=== PATIENT | male | born 1955 | race Caucasian/White ===

== ENCOUNTER 2022-04-07 09:02 | Outpatient (CLI) | payer OTHER, SELFPAY ==
--- NOTE | 2022-04-07 | USCV_ITS ---
Carroll Duckworth Age: 67 Gender: M : 1955 Exam Date: 04/07/2022 09:28 Ordering Phys: Alva Webb MD Technologist: Simba Guy [place] [facility] [place]: ? aaa HISTORY: Diameter (cm) AP x Transverse x Length Velocity (cm/s) Waveform Prox Aorta: 2.01 x 1.39 x 68.80 Triphasic Mid Aorta: 2.42 x 2.09 x 72.70 Triphasic Distal Aorta: 1.17 x 2.36 x 81.00 Triphasic Right Iliac Prox: 1.62 x 1.82 x 124.60 Biphasic Left Iliac Prox: 1.98 x 1.57 x 98.80 Triphasic Stent Prox Landing x x Aneurysmal Sac Max x x Lt Lat Sac Dim Rt Lat Sac Dim Stent Dist Landing x x Right Iliac Stent x x Left Iliac Stent x x Right Renal Art Left Renal Art FINDINGS: The study was a suboptimal quality because of the poor ultrasonic window. Normal abdominal aortic dimensions. Normal aortic Doppler velocities Ectatic proximal common iliac arteries CONCLUSIONS 1. No evidence of the abdomen aortic aneurysm based on the above findings. 2. The proximal cardiac arteries are found to be ectatic. No evidence of any significant arterial stenosis based on the Doppler flow velocities. Technically difficult study because of poor ultrasonic window. Dr Cesario Johns MD [facility] (Electronically Signed) Final Date: 08 April 2022 21:00 S
--- NOTE | 2022-04-07 | USCV_ITS ---
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 Dr Cesario Johns MD [facility] (Electronically Signed) Final Date: 08 April 2022 21:02 S
== END 2022-04-07 09:03 | disposition home or self-care (01) ==
PROVIDERS: PCP Family Medicine; Visit Provider Family Medicine
DX: I73.9 Peripheral vascular disease, unspecified (principal); R60.9 Edema, unspecified; Z13.89 Encounter for screening for other disorder
CPT/HCPCS: 76706; 93925

== ENCOUNTER → 2022-12-07 13:08 | Outpatient (BNVA) | payer OTHER, SELFPAY | PROVIDERS: PCP Family Medicine; Visit Provider Nurse Practitioner Family | DX: B07.8 Other viral warts (principal); L82.1 Other seborrheic keratosis; L71.8 Other rosacea; L91.8 Other hypertrophic disorders of the skin; L57.8 Other skin changes due to chronic exposure to nonionizing radiation; L81.4 Other melanin hyperpigmentation; D22.5 Melanocytic nevi of trunk; L85.3 Xerosis cutis; Z71.89 Other specified counseling | CPT/HCPCS: 11200; 17110; 99214 ==

== ENCOUNTER → 2023-03-02 09:48 | Outpatient (BNVA) | payer OTHER, SELFPAY | PROVIDERS: PCP Family Medicine; Referring Provider Family Medicine; Visit Provider Surgery | DX: Z12.11 Encounter for screening for malignant neoplasm of colon (principal) | CPT/HCPCS: 99203 ==

== ENCOUNTER → 2023-03-16 11:14 | Outpatient (BNVA) | payer OTHER, SELFPAY | PROVIDERS: PCP Family Medicine; Referring Provider Family Medicine; Visit Provider Internal Medicine Cardiovascular Disease | DX: R07.9 Chest pain, unspecified (principal) | CPT/HCPCS: 93005; 99205 ==

== ENCOUNTER 2023-03-23 11:08 | Outpatient (CLI) | payer OTHER, SELFPAY ==
--- NOTE | 2023-03-23 11:18 | CT_ITS ---
WS: [id number] CT chest w con* [id number] HISTORY: LUNG NODULE FOLLOW UP TECHNIQUE: Axial imaging performed through the thorax. Coronal and sagittal reformats are submitted. All CT scans at [facility] use at least one of these dose optimization techniques: automated exposure control; mA and/or kV adjustment per patient size (includes targeted exams where dose is mat ched to clinical indication); or iterative reconstruction. CONTRAST: Omnipaque 350; 100 mL IV. DLP: 767.93 mGy.cm COMPARISON: None available. Lungs and central airway: Mild pulmonary hyperexpansion. There is a noncalcified lobulated nodule in the anterior LEFT upper lobe measuring 10 x 8 x 10 mm. There are additional benign calcified granulom derrick. No pneumonia. Pleura: Normal. No pleural effusion. Heart and pericardium: Normal size heart with no pericardial effusion. Mediastinum and shelby: No adenopathy. 10 mm bilateral hilar lymph nodes. Vessels: Mild atherosclerosis aorta. Normal sized pulmonary artery. Chest wall and lower neck: No soft tissue masses. Upper abdomen: Hepatic steatosis. Small hiatal hernia. No adrenal mass. Osseous structures: Mild straightening of the normal thoracic kyphosis. Anterior bridging osteophytes . IMPRESSION: 1. Lobulated noncalcified nodule LEFT upper lobe measures 10 x 8 x 10 mm. No prior studies for compar oral to evaluate for interval change. 2. Scattered pulmonary granulomata which are calcified. 3. Mild chronic emphysema. 4. No mediastinal or hilar adenopathy.
== END 2023-03-23 11:09 | disposition home or self-care (01) ==
PROVIDERS: PCP Family Medicine; Visit Provider Family Medicine
DX: R91.1 Solitary pulmonary nodule (principal); J43.9 Emphysema, unspecified; J98.4 Other disorders of lung
CPT/HCPCS: 71260

== ENCOUNTER 2023-03-31 08:33 | Outpatient (CLI) | payer OTHER, SELFPAY ==
--- NOTE | 2023-03-31 | ECG_ITS ---
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 Interpretive Statements NAME OF STUDY: LEXISCAN SESTAMIBI STRESS TEST INDICATION: Chest Pain; Shortness of Breath PROCEDURE: At the baseline, the blood pressure was 134/84 mm Hg with a heart rate of 77 bpm and oxygen saturation of 97%. The electrocardiogram showed sinus rhythm, normal axis with normal ST and T's. ??? The Lexiscan was infused over a period of 20 seconds. A total of 0.4 milligrams of Lexiscan was infused. The stress phase was continued for a total of 5 minutes. Heart rate at the end of the stress phase was 81 bpm, oxygen saturation of 97% with a blood pressure of 139/80 mm Hg. The EKG at the peak infusion revealed no significant ST-T wave changes. Isolated PVC's noted during lexiscan infusion. ??? Sestamibi was injected 20 seconds after the Lexiscan infusion. ??? Blood pressure at the end of the recovery phase was 135/78 mm Hg, oxygen saturation of 97% with a heart rate of 80 beats per minute. Isolated PVC's noted in recovery. ??? CONCLUSION: 1. No significant EKG changes with the LexiScan infusion. 2. No LexiScan induced chest pain or cardiac arrhythmia. 3. Normal blood pressure and heart rate response. 4. Sestamibi/sestamibi perfusion scan pending; see separate report. Electronically Signed On 04-11-2023 6:32:14 TRANSITIONS MANAGER by Ninfa Kelly M.D. [id number]
[2023-03-31 08:40] VITALS: BMI 39.1
--- NOTE | 2023-03-31 08:47 | NMCV_ITS ---
NM leyda perf SPECT r/s* [id number] Carroll Duckworth Age: 68 Gender: M : 1955 Exam Date: 03/31/2023 09:52 Ordering Phys: Cesario Johns MD ([email or web address]) Technologist: MARÍA ELENA Marquez Exam Location: [facility] [address] Indications: Chest pain, CAD STRESS TEST Please see separate stress test report in [facility] for full findings IMAGE PROTOCOL Rest/Stress 1 Lexiscan Day Radiopharmaceutical Dose (mCi) Administration Site Administered by Rest: Tc-99m 11.0 IV MARÍA ELENA Marquez Sestamibi Stress:Tc-99m 33.0 IV MARÍA ELENA Marquez Sestamibi Rest: 31-Mar-2023 60 Discovery 630 Stress: 31-Mar-2023 30 Discovery 630 0.4mg Lexiscan. Supine position only as patient was unable to lay prone. SPECT RESULTS Technical Quality: Excellent Raw Data Analysis: Normal Image Corrections: No attenuation or motion correction applied Summed Stress Score: 0 Summed Rest Score: 3 Summed Difference Score: 0 PERFUSION FINDINGS SPECT images demonstrate homogeneous tracer distribution throughout the myocardium on stress images. FUNCTIONAL RESULTS (calculated via Gated SPECT) Stress Image LV EF (%): 75 Stress EDV (mL):106 TID: 1.32 Stress ESV (mL):26 FUNCTIONAL FINDINGS: The left ventricle is normal in size. Transient Ischemia Dilatation of 1.3. The left ventricular ejection fraction is normal with a value of 75%. Normal end-diastolic and end-systolic volumes IMPRESSIONS 1. Myocardial perfusion imaging is normal. 2. Overall left ventricular systolic function is normal without regional wall motion abnormalities, LVEF=75%. 3. Increased transient ischemic dilation index of 1.32. This may represent subendocardial ischemia or multivessel disease. Clinical correlation is advised. 4. No EKG changes with Lexiscan infusion. Refer to separate report for details. Ninfa Kelly MD (Electronically Signed) Final Date: 31 March 2023 15:58 S
[2023-03-31] MEDS: regadenoson 0.4 Mg/5 ml Syringe IVP (10:35)
[2023-03-31 14:04] VITALS: BP 135/78; PULSE 81
== END 2023-03-31 08:34 | disposition home or self-care (01) ==
LOC: CDL 08:35
PROVIDERS: PCP Family Medicine; Visit Provider Internal Medicine Cardiovascular Disease
DX: R07.9 Chest pain, unspecified (principal); R06.02 Shortness of breath
CPT/HCPCS: 36415; 78452; 93017; 96374; 99205; A9500; J2785

== ENCOUNTER 2023-04-06 12:19 | Outpatient (CLI) | payer OTHER, SELFPAY ==
--- NOTE | 2023-04-06 12:45 | USCV_ITS ---
Carroll Duckworth Age: 68 Gender: M : 1955 Exam Date: 04/06/2023 13:32 Ordering Phys: Cesario Johns MD ([email or web address]) Technologist: CT Exam Location: [facility] [place] Indication: BP: 135 / 82 HR: 83 Rhythm: Sinus Technical Quality: Poor because of body habitus MEASUREMENTS (Male / Female) Normal Values 2D ECHO LVOT Diameter 2.2 cm LV Ejection Fraction MOD 2C 55.1 % LV Ejection Fraction 2C AL 54.0 % LA Diameter 5.0 cm Aorta at Sinotubular Diameter 3.8 cm M-MODE Aortic Annulus Diameter 4.0 cm LA Ao Ratio MM 1.4 MV E Point Septal Separation 1.9 cm DOPPLER AV Peak Velocity 160.0 cm/s LVOT Peak Velocity 119.0 cm/s AV Area Cont Eq vti 3.8 cm squared AV Area Cont Eq pk 2.8 cm squared MV Area PHT 3.9 cm squared Mitral E to A Ratio 0.7 MV E' Velocity 40.0 cm/s Mitral E to MV E' Ratio 7.8 Mitral E to LV E' Lateral Ratio 7.6 Mitral E to LV E' Septal Ratio 8.2 TR Peak Velocity 176.0 cm/s TR Peak Gradient 12.4 mmHg TV Peak E Velocity 63.0 cm/s Right Atrial Pressure 3.0 mmHg Pulmonary Artery Systolic Pressu 15.4 mmHg PV Peak Velocity 130.0 cm/s FINDINGS Left Ventricle Technically limited quality echocardiogram because of poor ultrasonic windows. LV systolic function is normal with EF of 50 to 55%. No regional wall motion abnormalities are seen. Grade 1 diastolic dysfunction Right Ventricle Normal in size and Right Atrium Normal in size Left Atrium Normal insight Mitral Valve Mild mitral annular calcification is seen. Mild mitral regurgitation. Aortic Valve Aortic valve is thickened. No significant stenosis or regurgitation. Tricuspid Valve Mild tricuspid regurgitation. Insufficient TR jet to calculate RVSP. Pulmonic Valve Not well-visualized Pericardium Normal Aorta Ascending aorta is dilated with diameter of 4.11cm IVC Appears to be normal CONCLUSIONS LV systolic function is normal with EF of 50-55% Grade 1 diastolic dysfunction Mild mitral regurgitation Mild tricuspid regurgitation Ascending aorta is dillated with diameter of 4.11cm No comparison studies available Ted Brown MD (Electronically Signed) Final Date: 07 April 2023 08:05 S
--- NOTE | 2023-04-06 13:30 | USCV_ITS ---
Carroll Duckworth Age: 68 Gender: M : 1955 Exam Date: 04/06/2023 12:52 Ordering Phys: Cesario Johns MD ([email or web address]) Technologist: CT Exam Location: [facility] [place] Indication: HISTORY: PROCEDURES: FINDINGS: The veins were found to be easily compressible with spontaneous blood flow. Non pulsatile flow pattern. The level of the below-knee segment of the greater saphenous vein on the left side, venous reflux was noted with the reflux time of 0.78 seconds. The venous segment was measuring 0.43 cm in diameter and at a depth of 0.67 cm from the surface. The mid segment of the small saphenous vein on the left side also was found to have a reflux time of 1.4-second. The venous segment was measuring 0.35 cm in diameter and at a depth of 1.04 cm from the surface. CONCLUSIONS 1. Significant venous reflux was noted at the mid segment of the small saphenous vein on the left side, with a reflux time of greater than 500 ms. 2. Significant venous reflux also was noted at the below-knee segment of the greater saphenous vein on the left side. However the venous segment was found to be superficial, at a depth of 0.67 cm. 3. The details of the venous diameter, reflux time and depth from the surface are as mentioned above. 4. No evidence deep vein thrombosis. Dr Cesario Johns MD [facility] (Electronically Signed) Final Date: 09 April 2023 10:33 S
== END 2023-04-06 12:20 | disposition home or self-care (01) ==
PROVIDERS: PCP Family Medicine; Visit Provider Internal Medicine Cardiovascular Disease
DX: R06.02 Shortness of breath (principal); R06.09 Other forms of dyspnea; M79.89 Other specified soft tissue disorders; I08.1 Rheumatic disorders of both mitral and tricuspid valves; I77.810 Thoracic aortic ectasia; I87.2 Venous insufficiency (chronic) (peripheral)
CPT/HCPCS: 93306; 93970

== ENCOUNTER 2023-04-19 13:12 | Outpatient (CLI) | payer OTHER, SELFPAY ==
--- NOTE | 2023-04-19 13:18 | USCV_ITS ---
Carroll Duckworth Age: 68 Gender: M : 1955 Exam Date: 04/19/2023 13:49 Ordering Phys: Alva Webb MD Technologist: AMOR Exam Location: [facility] [place] Indication: LE Edema HISTORY: Lower extremity edema. Lower extremity pain. PROCEDURES: Venous duplex imaging was performed in bilateral lower extremities. The following venous structures were evaluated: common femoral vein, profunda vein, proximal portion of the greater saphenous vein, superficial femoral vein, and the popliteal vein. In addition, the posterior tibial and peroneal trunk were evaluated. Bilaterally, the common femoral, superficial femoral, profunda femoral, popliteal, posterior tibial, greater saphenous veins, and the peroneal trunk were identified and interrogated in the standard fashion. These veins were found to be easily compressible with spontaneous blood flow. No evidence of insufficiency or thrombus noted. Serial compression, augmentation maneuvers, and spectral Doppler flow evaluation were performed. FINDINGS: Normal 2-D Doppler and augmentation and compressibility throughout the lower extremity venous structures. Additional imaging through the proximal calf veins also reveals no thrombus. Limited evaluation of the greater saphenous vein is patent with no thrombus. CONCLUSIONS No evidence of right lower extremity DVT. No evidence of left lower extremity DVT. Giovanny Reyes MD (Electronically Signed) Final Date: 19 April 2023 15:51 S
--- NOTE | 2023-04-19 13:18 | US_ITS ---
WS: [id number] TESTICULAR ULTRASOUND HISTORY: SCROTAL VARICOTIES BLEEDING COMPARISON: None available. TECHNIQUE: Real-time and color Doppler imaging or utilized to perform a testicular ultrasound. Right testicle: 4.2 cm x 2.6 cm x 2.6 cm. Normal size and echogenicity. No mass or torsion. Normal color Doppler is present throughout. Systolic and diastolic velocities are both present. No significant hydrocele. Right epididymis: Normal epididymis with no increased vascularity. Moderate size varicocele. Left testicle: 4.2 cm x 3.0 cm x 2.4 cm. Normal size and echogenicity. No mass or torsion. Tunica albuginea cyst measures 3 x 3 x 3 mm. Normal color Doppler is present throughout. Systolic and diastolic velocities are both present. No significant hydrocele. Left epididymis: Normal epididymis with no increased vascularity. Moderate size varicocele IMPRESSION: 1. No testicular mass or torsion. 2. Bilateral scrotal varicoceles.
== END 2023-04-19 13:13 | disposition home or self-care (01) ==
LOC: RAD 13:12
PROVIDERS: PCP Family Medicine; Visit Provider Family Medicine
DX: I86.1 Scrotal varices (principal); R60.0 Localized edema
CPT/HCPCS: 76870; 93970

== ENCOUNTER → 2023-04-28 09:44 | Outpatient (BNVA) | payer OTHER, SELFPAY | PROVIDERS: PCP Family Medicine; Visit Provider Nurse Practitioner Family | DX: R07.9 Chest pain, unspecified (principal) | CPT/HCPCS: 99213 ==

== ENCOUNTER → 2023-05-25 14:05 | Outpatient (BNVA) | payer OTHER, SELFPAY | PROVIDERS: PCP Family Medicine; Referring Provider Family Medicine; Visit Provider Internal Medicine Pulmonary Disease | DX: R06.02 Shortness of breath (principal); R91.1 Solitary pulmonary nodule; Z79.899 Other long term (current) drug therapy | CPT/HCPCS: 36415; 80053; 85025; 85049; 85384; 85610; 85730; 99204 ==

== ENCOUNTER 2023-06-15 09:39 | Outpatient (CLI) | payer OTHER, SELFPAY ==
--- NOTE | 2023-06-15 | PETR_ITS ---
PROCEDURE INFORMATION: Exam: PET/CT Skull Base to Mid-thigh Exam date and time: 06/15/2023 10:45 AM Age: 68 years old Clinical indication: Abnormal findings; 1. Lobulated noncalcified nodule left upper lobe measures 10 x 8 x 10 mm. No prior studies for. Comparison to evaluate for interval change. ; Additional info: Abnormal findings on diagnostic imaging of lung LABS AND CLINICAL REPORTS: Glucose: 134 mg/dl Treatment strategy for malignancy (PET staging): Initial Staging (PI) TECHNIQUE: Imaging protocol: Following at least four-hour fasting and following the injection of radiopharmaceutical, low dose CT images were obtained. Then, PET images were obtained. Attenuation corrected images were constructed using the CT scan. Fused images of PET and CT were reviewed. The standardized uptake values (SUV) reported below are maximum values within a region of interest, expressed in gm/ml. Exam includes orbital meatal line to mid-thigh. Radiopharmaceutical: 13.25 mCi F-18 FDG (Fluorodeoxyglucose), IV. Time of imaging post radiopharmaceutical administration: 1 hour COMPARISON: CT chest w con* [id number] 03/23/2023 12:16 PM FINDINGS: Brain: Visualized brain has normal physiologic uptake. Pharynx: No abnormal uptake. Larynx: No abnormal uptake. Thyroid: Hypermetabolic 1.2 cm right thyroid nodule has SUV max of 6.7. Lungs, pleura and trachea: The left upper lobe pulmonary nodule has no increased FDG uptake. Calcified granuloma in the right upper lobe. Heart: Normal physiologic uptake. Mediastinal space: No abnormal uptake. Liver: No abnormal uptake. Gallbladder and bile ducts: No abnormal uptake. Pancreas: No abnormal uptake. Spleen: No abnormal uptake. Adrenal glands: No abnormal uptake. Kidneys and ureters: Normal physiologic uptake. Stomach and bowel: No abnormal uptake. Vasculature: No abnormal uptake. Lymph nodes: Calcified mediastinal and hilar lymph nodes without FDG uptake. Bones/joints: No abnormal uptake in the visualized axial and appendicular skeleton. Soft tissues: Tiny fat containing umbilical hernia. [id number] IMPRESSION: 1. The left upper lobe pulmonary nodule has no increased FDG uptake. 2. Hypermetabolic 1.2 cm right thyroid nodule has SUV max of 6.7. Recommend dedicated thyroid ultrasound.
== END 2023-06-15 09:40 | disposition home or self-care (01) ==
LOC: RAD 09:40
PROVIDERS: Family Provider Internal Medicine Pulmonary Disease; PCP Family Medicine; Visit Provider Family Medicine
DX: R91.8 Other nonspecific abnormal finding of lung field (principal); R91.1 Solitary pulmonary nodule
CPT/HCPCS: 78815; A9552

== ENCOUNTER → 2023-06-29 14:10 | Outpatient (BNVA) | payer OTHER, SELFPAY | PROVIDERS: Family Provider Internal Medicine Pulmonary Disease; PCP Family Medicine; Visit Provider Internal Medicine Pulmonary Disease | DX: R91.1 Solitary pulmonary nodule (principal); J43.2 Centrilobular emphysema; M79.89 Other specified soft tissue disorders; E04.1 Nontoxic single thyroid nodule; Z87.891 Personal history of nicotine dependence; R09.82 Postnasal drip | CPT/HCPCS: 99214 ==

== ENCOUNTER 2023-07-09 09:11 | Outpatient (CLI) | payer OTHER, SELFPAY ==
--- NOTE | 2023-07-09 09:15 | US_ITS ---
WS: [id number] THYROID ULTRASOUND HISTORY: INCIDENTAL THYROID NODULE FOUND COMPARISON: PET/CT 06/15/2023 Right lobe: 2.2 cm x 2.1 cm x 4.7 cm (w x ap x l). Volume: 11.4 cm3. Mildly enlarged thyroid. There is a hypoechoic nodule in the mid gland measuring 8 x 9 x 10 mm. This does have a cystic component with a septation. No echogenic foci. There is an additional slightly hy poechoic nodule in the lower pole. This nodule is nearly isoechoic to the gland. This nodule measures 1.6 x 1.3 x 1.7 cm. No increased vascularity. Left lobe: 1.8 cm x 1.8 cm x 5.0 cm (w x ap x l). Volume: 8.7 cm3. Spongiform nodule in the central gland is subcentimeter. Isthmus: 0.6 cm. IMPRESSION: 1. TI-RADS 3; mildly suspicious nodule lower pole RIGHT thyroid. This nodule was positive on recent PET/CT. TI-RADS suggest following this nodule until greater than 2.5 cm. As this nodule is positive o n PET CT consider fine-needle aspiration by ultrasound guidance at this time. 2. Cystic nodule in the upper pole RIGHT thyroid for which yearly ultrasound evaluation can be perfo rmed.
== END 2023-07-09 09:12 | disposition home or self-care (01) ==
LOC: RAD 09:12
PROVIDERS: Family Provider Internal Medicine Pulmonary Disease; PCP Family Medicine; Visit Provider Family Medicine
DX: E04.1 Nontoxic single thyroid nodule (principal)
CPT/HCPCS: 76536

== ENCOUNTER 2023-07-15 10:58 | Outpatient (CLI) | payer OTHER, SELFPAY ==
[2023-07-15 11:14] VITALS: PULSE 94; RESP 18; O2SAT 98
[2023-07-15] MEDS: albuterol 2.5 mg/3 mL Neb INHALATION (11:14)
[2023-07-15 11:18] VITALS: PULSE 97
== END 2023-07-15 10:59 | disposition home or self-care (01) ==
PROVIDERS: PCP Family Medicine; Visit Provider Internal Medicine Pulmonary Disease
DX: J43.2 Centrilobular emphysema (principal); R91.1 Solitary pulmonary nodule; Z87.891 Personal history of nicotine dependence; R94.2 Abnormal results of pulmonary function studies
CPT/HCPCS: 94060; 94726; 94729; J7613

== ENCOUNTER 2023-09-24 09:02 | Outpatient (CLI) | payer OTHER, SELFPAY ==
--- NOTE | 2023-09-24 09:06 | CT_ITS ---
WS: [id number] CT NECK TECHNIQUE: Contrast-enhanced CT of the neck with coronal and sagittal reformatted images. CLINICAL INFORMATION: NONTOXIC SINGLE THYROID NODULE COMPARISON: None. DLP: 329.[address] scans at [facility] use at least one of these dose optimization techniques: automated e xposure control; mA and/or kV adjustment per patient size (includes targeted exams where dose is matc hed to clinical indication); or iterative reconstruction. FINDINGS: Small bilateral thyroid nodules. Dominant nodule lower pole RIGHT thyroid similar to the recent ultra sound. No mediastinal or hilar lymphadenopathy. Parotid glands are normal. Normal submandibular gland s. No evidence of supraglottic or glottic mass. Normal posterior nasopharynx. Normal parapharyngeal f at. Normal subglottic airway. Lung apices are well aerated. Paranasal sinuses and mastoid air cells well aerated. Straightening of the normal cervical lordosis. Moderate spondylitic changes. IMPRESSION: 1. Small bilateral thyroid nodules largest lower pole RIGHT thyroid similar to the prior recent ultr asound. 2. No cervical lymphadenopathy. 3. Normal salivary glands. 4. No evidence of supraglottic or glottic mass. Normal subglottic airway. 5. No other suspicious findings.
[2023-09-24] MEDS: iohexol 350 mg/mL 500 mL Btl (per mL) IV (09:27)
[2023-09-24 10:10] LABS: Blood Urea Nitrogen 13 mg/dL (8-23); Glomerular Filtration Rate 60.2 mL/min (90-130)
== END 2023-09-24 09:03 | disposition home or self-care (01) ==
LOC: RAD 09:02
PROVIDERS: PCP Family Medicine; Visit Provider Specialist
DX: E04.2 Nontoxic multinodular goiter (principal)
CPT/HCPCS: 70491; 82565; 84520; Q9967

== ENCOUNTER 2023-10-19 08:52 | Day surgery (SDC) | payer OTHER, SELFPAY ==
--- NOTE | 2023-10-19 09:05 | W.PM.OPSFHP ---
Same Day Surgery H&P Indication for Procedure/HPI DATE OF PROCEDURE: October 19, 2023 CHIEF COMPLAINT/INDICATIONFOR SURGICAL PROCEDURE: need for screening colonoscopy PREOP DIAGNOSIS: need for screening colonoscopy PLANNED PROCEDURE: Operation Date: 10/19/23 11:05 Proposed Procedures p Colonoscopy 71540, G0121, Z12.11(Not Applicable) - Carmelo Barker MD Medications/Allergies* Home Medications Medication Instructions Recorded Confirmed Type finasteride 5 mg-tadalafil 5 mg 1 cap PO DAILY 03/02/23 10/15/23 History capsule (Entadfi) lisinopril 10 mg tablet 10 mg PO DAILY 03/02/23 10/15/23 History pantoprazole 40 mg tablet,delayed 40 mg PO DAILY 03/02/23 10/15/23 History release rosuvastatin 10 mg tablet 5 mg PO DAILY 03/02/23 10/15/23 History aspirin 81 mg tablet,delayed 81 mg PO DAILY 03/16/23 10/15/23 History release (Adult Aspirin Regimen) magnesium oxide 400 mg PO DAILY 03/16/23 10/15/23 History acetaminophen 500 mg capsule 500 mg PO Q6H PRN Pain 03/23/23 10/15/23 History calcium carbonate 600 mg-vitamin 1 tab PO DAILY 03/23/23 10/15/23 History D3 10 mcg (400 unit) tablet glucosamine 750 bc-wzxfqrnyzda-qzu 1 tab PO TID 03/23/23 10/15/23 History no1 625 mg-C 30 mg-gi 1 mg tablet polyethylene glycol 3350(bulk) 1 ea miscellaneous DAILY 03/23/23 10/15/23 History (Base B, Polyethylene Glycol 3350 granules) pregabalin 300 mg capsule (Lyrica) 150 mg PO BID 03/23/23 10/15/23 History cyclobenzaprine 10 mg tablet 10 mg PO TID PRN muscle spasms 05/25/23 10/15/23 History diphenhydramine HCl 25 mg capsule 25 mg PO .hs 05/25/23 10/15/23 History (Allergy (diphenhydramine)) empagliflozin 10 mg tablet 10 mg PO DAILY 05/25/23 10/15/23 History (Jardiance) omega-3 fatty acids-fish oil 300 1 cap PO BID 05/25/23 10/15/23 History mg-1,000 mg capsule Curamin 3 tab PO DAILY 06/29/23 10/15/23 History spironolactone 25 1 tab PO DAILY 06/29/23 10/15/23 History mg-hydrochlorothiazide 25 mg tablet fluticasone propionate 50 1 spray intranasal BID PRN 10/15/23 10/15/23 History mcg/actuation nasal Congestion spray,suspension (Flonase Allergy Relief) metronidazole 0.75 % topical gel 1 applic topical BID 10/15/23 10/15/23 History (Rosadan) Allergies/Adverse Reactions Allergy/AdvReac Type Severity Reaction Status Date / Time metformin Allergy ADR-Cramping Verified 10/19/23 09:03 of the Muscles tramadol Allergy ADR-Vomitin Verified 10/19/23 09:03 g Pertinent History/Comorbid Conditions* Medical History (Updated 06/29/23 @ 14:58 by Chinedu Lozano MD) Diabetes Neuropathy COPD (chronic obstructive pulmonary disease) Surgical History (Updated 03/16/23 @ 10:43 by Cesario Johns MD) Hx of tonsillectomy Family History (Updated 03/16/23 @ 10:37 by Katina Orellana RN) Diabetes CAD (coronary artery disease) Stroke Social History Smoking and tobacco/nicotine status: former use of tobacco/nicotine Quit status (tobacco/nicotine): has quit using Year quit tobacco: 2005 Former quit date comment: 2ppd X 37 years Pertinent Exam Findings alert, oriented x 3, clear to auscultation bilaterally and regular rate & rhythm Recommendations Surgery/Procedure today Coding Level of Care Code Acute Code for Chg Fwd
[2023-10-19 09:07] VITALS: BP 133/84; PULSE 79; RESP 18; TEMP 36.4; O2SAT 97; BMI 39.1
[2023-10-19] MEDS: sodium chloride 0.9% 1,000 ML 30 ML IV (09:20)
--- NOTE | 2023-10-19 09:22 | ANES.PREANE2 ---
Pre-Anesthetic Assessment Height/Weight: Height 1.88 m Weight 138.346 kg Temp Pulse Resp BP Pulse Ox O2 Del Method 97.5 F L 79 18 133/84 97 Room Air 10/19/23 09:07 10/19/23 09:07 10/19/23 09:07 10/19/23 09:07 10/19/23 09:07 10/19/23 09:07 Preop Diagnosis: need for screening colonoscopy Operation Date: 10/19/23 11:05 Proposed Procedures p Colonoscopy 83360, G0121, Z12.11(Not Applicable) - Carmelo Barker MD Was Beta Arnold taken within 24 hours: N/A Was Clonidine taken within 24 hours: N/A Last intake: Intake Last Liquid Date 10/19/23 Last Liquid Time 06:45 Last Solid Date 10/17/23 Last Solid Time 18:00 Last Intake: 23:00 Social No alcohol and No tobacco Exam alert and oriented x 3 Airway Submandibular: within normal limits Cervical ROM: within normal limits Mallampati: Class II Dentition: false History/ROS No significant history except as noted Pulmonary Chronic Obstructive Pulmonary Disease (emphysema) snoring CV/HEM Hypertension Chronic Renal Insufficiency Hepatic None reported GI Gastroesophageal Reflux Disease Metabolic Diabetes Mellitus, Hyperlipidemia and Thyroid Disease (nodules on thyroid) Musc/skel Fibromyalgia, Lower Back Pain and Osteoarthritis/DJD Neuropsych None reported Anesthetic Plan ASA status: 3 Anesthesia: MAC Risk of > 500 ml blood loss (7ml/kg in children): No Medications/Allergies Home Medications Medication Instructions Recorded Confirmed Last Taken Type finasteride 5 mg-tadalafil 5 mg 1 cap PO DAILY 03/02/23 10/19/23 10/18/23 History capsule (Entadfi) lisinopril 10 mg tablet 10 mg PO DAILY 03/02/23 10/19/23 10/18/23 History pantoprazole 40 mg tablet,delayed 40 mg PO DAILY 03/02/23 10/19/23 10/18/23 History release rosuvastatin 10 mg tablet 5 mg PO DAILY 03/02/23 10/19/23 10/18/23 History aspirin 81 mg tablet,delayed 81 mg PO DAILY 03/16/23 10/19/23 10/18/23 History release (Adult Aspirin Regimen) magnesium oxide 400 mg PO DAILY 03/16/23 10/19/23 10/18/23 History acetaminophen 500 mg capsule 500 mg PO Q6H PRN Pain 03/23/23 10/19/23 Unknown History calcium carbonate 600 mg-vitamin 1 tab PO DAILY 03/23/23 10/19/23 10/18/23 History D3 10 mcg (400 unit) tablet glucosamine 750 [id number] 1 tab PO TID 03/23/23 10/19/23 10/18/23 History no1 625 mg-C 30 mg-gi 1 mg tablet pregabalin 300 mg capsule (Lyrica) 150 mg PO BID 03/23/23 10/19/23 10/18/23 History cyclobenzaprine 10 mg tablet 10 mg PO TID PRN muscle spasms 05/25/23 10/19/23 10/18/23 History diphenhydramine HCl 25 mg capsule 25 mg PO .hs 05/25/23 10/19/23 10/14/23 History (Allergy (diphenhydramine)) empagliflozin 10 mg tablet 10 mg PO DAILY 05/25/23 10/19/23 10/18/23 History (Jardiance) omega-3 fatty acids-fish oil 300 1 cap PO BID 05/25/23 10/19/23 10/18/23 History mg-1,000 mg capsule Curamin 3 tab PO DAILY 06/29/23 10/19/23 10/18/23 History spironolactone 25 1 tab PO DAILY 06/29/23 10/19/23 10/18/23 History mg-hydrochlorothiazide 25 mg tablet tiotropium 2.5 mcg-olodaterol 2.5 2 puff inhalation DAILY #4 grams 06/29/23 10/19/23 10/18/23 Rx mcg/actuation mist for inhalation (Stiolto Respimat) metronidazole 0.75 % topical gel 1 applic topical BID 10/15/23 10/19/23 10/18/23 History (Rosadan) Allergies Allergy/AdvReac Type Severity Reaction Status Date / Time metformin Allergy ADR-Cramping Verified 10/19/23 09:03 of the Muscles tramadol Allergy ADR-Vomitin Verified 10/19/23 09:03 g Current Medications Generic Name Dose Route Start Last Admin Trade Name Freq PRN Reason Stop Dose Admin Sodium Chloride 1,000 mls @ 30 mls/hr 10/19/23 09:00 10/19/23 09:20 Sodium Chloride 0.9% IV 10/20/23 08:59 30 mls/hr .Q24H JAYANT Administration PFSH Anesthesia Medical History Diabetes Neuropathy COPD (chronic obstructive pulmonary disease) Surgical History Hx of tonsillectomy Family History Other CAD (coronary artery disease) Diabetes Stroke Social History Smoking and tobacco/nicotine status: former use of tobacco/nicotine Quit status (tobacco/nicotine): has quit using Year quit tobacco: 2005 Former quit date comment: 2ppd X 37 years Data Anesthesia Cardiac Studies: Echocardiogram 04/06/23 Sestamibi Stress Test (Cardiology) 03/31/23
[2023-10-19 09:24] LABS: Glucose Point of Care 116 mg/dL (70-110)
[2023-10-19 10:17] VITALS: BP 116/96; PULSE 72; RESP 16; TEMP 36.1; O2SAT 94
[2023-10-19 10:33] VITALS: BP 144/91; PULSE 74; RESP 18; O2SAT 96
--- NOTE | 2023-10-19 13:40 | ANE.PACU2 ---
Inpatient post-anesthesia follow up: Vital signs: Temperature 97.0 F Pulse Rate 74 Respiratory Rate 18 Blood Pressure 144/91 Pulse Oximetry 96 Oxygen Delivery Me thod Room Air Oxygen Flow Rate 4 Fraction of Inspir ed Oxygen Hydration adequate: Yes Nausea and vomiting: No Pain level: controlled Mental status: Baseline Additional Comments: no apparent anesthetic complications noted
== END 2023-10-19 10:51 | disposition home or self-care (01) ==
PROVIDERS: PCP Family Medicine; Visit Provider Surgery
PROC: 0DJD8ZZ Inspection of Lower Intestinal Tract, Via Natural or Artificial Opening Endoscopic (ICD-10-PCS; CPT 45378; principal; 2023-10-19 11:05)
DX: D12.3 Benign neoplasm of transverse colon (principal); K62.1 Rectal polyp; Z86.010 Personal history of colon polyps
CPT/HCPCS: 36416; 45380; 45385; 82962; 88305; J2704; J7030

== ENCOUNTER → 2023-10-27 13:08 | Outpatient (BNVA) | payer OTHER, SELFPAY | PROVIDERS: PCP Family Medicine; Visit Provider Internal Medicine Pulmonary Disease | DX: R91.1 Solitary pulmonary nodule (principal); J43.2 Centrilobular emphysema; M79.89 Other specified soft tissue disorders; E04.1 Nontoxic single thyroid nodule | CPT/HCPCS: 99214 ==

== ENCOUNTER → 2023-11-03 13:01 | Outpatient (BNVA) | payer OTHER, SELFPAY | PROVIDERS: PCP Family Medicine; Visit Provider Surgery | DX: Z09 Encounter for follow-up examination after completed treatment for conditions other than malignant neoplasm (principal) | CPT/HCPCS: 99213 ==

== ENCOUNTER 2023-12-07 11:10 | Observation (INO) | payer OTHER, MEDICARE, SELFPAY ==
[2023-12-07] VITALS (32 sets, daily range): BP systolic 104–166; BP diastolic 67–97; PULSE 71–110; RESP 8–20; TEMP 36.1–36.3; O2SAT 87–98; BMI 38.1
[2023-12-07 07:44] LABS: Glucose Point of Care 125 mg/dL (70-110)
--- NOTE | 2023-12-07 07:50 | ANES.PREANE2 ---
Pre-Anesthetic Assessment Height/Weight: Height 1.88 m Weight 134.717 kg Temp Pulse Resp BP Pulse Ox O2 Del Method 97.0 F L 71 18 104/85 98 Room Air 12/07/23 07:25 12/07/23 07:25 12/07/23 07:25 12/07/23 07:25 12/07/23 07:25 12/07/23 07:25 Operation Date: 12/07/23 08:20 Proposed Procedures p Hemithyroidectomy 24342, E04.1(Right) - Jack Leonard MD Familial anesthetic complications: none Was Beta Arnold taken within 24 hours: N/A Was Clonidine taken within 24 hours: N/A Last intake: Intake Last Liquid Date 12/06/23 Last Liquid Time 23:30 Last Solid Date 12/06/23 Last Solid Time 22:00 Social No alcohol and No tobacco (h/o smoking) Exam alert, oriented x 3 and regular rate & rhythm Airway Submandibular: within normal limits Cervical ROM: within normal limits Mallampati: Class II Dentition: false Pulmonary Chronic Obstructive Pulmonary Disease CV/HEM Hypertension GI Gastroesophageal Reflux Disease Metabolic Diabetes Mellitus, Hyperlipidemia and Morbid Obesity Anesthetic Plan ASA status: 3 Anesthesia: General Medications/Allergies Home Medications Medication Instructions Recorded Confirmed Last Taken Type finasteride 5 mg-tadalafil 5 mg 1 cap PO DAILY 03/02/23 12/06/23 12/06/23 History capsule (Entadfi) lisinopril 10 mg tablet 10 mg PO DAILY 03/02/23 12/06/23 12/06/23 History pantoprazole 40 mg tablet,delayed 40 mg PO DAILY 03/02/23 12/06/23 12/06/23 History release rosuvastatin 10 mg tablet 5 mg PO DAILY 03/02/23 12/06/23 12/06/23 History aspirin 81 mg tablet,delayed 81 mg PO DAILY 03/16/23 12/06/23 12/06/23 History release (Adult Aspirin Regimen) magnesium oxide 400 mg PO DAILY 03/16/23 12/06/23 12/06/23 History acetaminophen 500 mg capsule 500 mg PO Q6H PRN Pain 03/23/23 12/06/23 12/01/23 History calcium carbonate 600 mg-vitamin 1 tab PO DAILY 03/23/23 12/06/23 12/06/23 History D3 10 mcg (400 unit) tablet glucosamine 750 [id number]-grn 1 tab PO TID 03/23/23 12/06/23 12/06/23 History no1 625 mg-C 30 mg-gi 1 mg tablet pregabalin 300 mg capsule (Lyrica) 150 mg PO BID 03/23/23 12/06/23 12/06/23 History cyclobenzaprine 10 mg tablet 10 mg PO TID PRN muscle spasms 05/25/23 12/06/23 12/06/23 History diphenhydramine HCl 25 mg capsule 25 mg PO .hs 05/25/23 12/06/23 12/05/23 History (Allergy (diphenhydramine)) empagliflozin 10 mg tablet 10 mg PO DAILY 05/25/23 12/06/23 12/06/23 History (Jardiance) omega-3 fatty acids-fish oil 300 1 cap PO BID 05/25/23 12/06/23 12/06/23 History mg-1,000 mg capsule Curamin 3 tab PO DAILY 06/29/23 12/06/23 10/18/23 History spironolactone 25 1 tab PO DAILY 06/29/23 12/06/23 12/06/23 History mg-hydrochlorothiazide 25 mg tablet metronidazole 0.75 % topical gel 1 applic topical BID 10/15/23 12/06/23 12/03/23 History (Rosadan) tiotropium 2.5 mcg-olodaterol 2.5 2 puff inhalation DAILY #4 grams 10/27/23 12/06/23 12/06/23 Rx mcg/actuation mist for inhalation (Stiolto Respimat) Allergies Allergy/AdvReac Type Severity Reaction Status Date / Time metformin Allergy ADR-Cramping Verified 11/03/23 13:04 of the Muscles tramadol Allergy ADR-Vomitin Verified 11/03/23 13:04 g PFSH Anesthesia Medical History Diabetes Neuropathy COPD (chronic obstructive pulmonary disease) Surgical History Hx of tonsillectomy Family History Other CAD (coronary artery disease) Diabetes Stroke Social History Smoking and tobacco/nicotine status: former use of tobacco/nicotine Quit status (tobacco/nicotine): has quit using Year quit tobacco: 2005 Former quit date comment: 2ppd X 37 years Data Anesthesia Cardiac Studies: Echocardiogram 04/06/23 Sestamibi Stress Test (Cardiology) 03/31/23
--- NOTE | 2023-12-07 07:55 | W.PM.OPSUD ---
Surgery/Procedure H&P Update DATE OF PROCEDURE: December 07, 2023 DATE H&P PERFORMED: 11/29/23 PRIMARY INDICATION FOR PROCEDURE: Right Thyroid Nodule with suspicious FNA biopsy results PLANNED PROCEDURE: Operation Date: 12/07/23 08:20 Proposed Procedures p Hemithyroidectomy 89436, E04.1(Right) - Jack Leonard MD
[2023-12-07 08:13] LABS: Anion Gap 14.9 (5-19); Blood Urea Nitrogen 14 mg/dL (8-23); Calcium 9.2 mg/dL (8.5-10.5); Carbon Dioxide 26 mmol/L (22-29); Chloride 101 mmol/L (98-107); Creatinine Clr Calc Pharmacy 103.2068; Glomerular Filtration Rate 74.3 mL/min (90-130); Glucose 129 mg/dL (65-115); Osmolality Calculated 286 mOsm/kg (285-295); Potassium 4.9 mmol/L (3.5-5.1); Sodium 137 mmol/L (136-145)
[2023-12-07] MEDS: ceFAZolin 3,000 MG in sodium chloride 0.9% (plus) 100 ML 200 MG IV (08:14)
[2023-12-07] MEDS: lidocaine-epi 1% 20 mL INJ INJECTION (09:07)
[2023-12-07] MEDS: ceFAZolin 1,000 mg SDV 1000 MG IRRIGATION (09:09)
[2023-12-07] MEDS: thrombin 5,000 unit SDV 5000 UNIT XX (10:22)
[2023-12-07] MEDS: EPINEPHrine 1 mg/mL INJ XX (10:23)
[2023-12-07] MEDS: fluorescein 1 mg Strip XX (10:23)
[2023-12-07] MEDS: neomycin-poly-bacitracin oint 28 gm 1 APPLIC TOPICAL (10:39)
--- NOTE | 2023-12-07 11:12 | P.OP_ITS ---
Operative Report Date of procedure: December 07, 2023 Pre-op diagnosis: Right thyroid lobe nodule with suspicious FNA biopsy Post-op diagnosis: same Post-op findings: - Multinodular right thyroid lobe - Intact and functional right recurrent laryngeal nerve: the right vagus nerve stimulated prior to tracheoesophageal dissection and after right thyroid lobe removal - Superior parathyroid gland removed with specimen, was diced and reimplanted in the left sternocleidomastoid muscle - O/W Normal right neck exam Procedure done: Right hemithyroidectomy Implants: None Specimens removed/disposition: Right thyroid lobe Pathology: Right thyroid lobe Surgeon: Jack Leonard Surgeon: Jack Leonard MD Chief Of Field Operations: Jac Calvillo Anesthesia: General Estimated blood loss (mL): 20 IV fluids (mL): 1,500 Urine output (mL): 1,200 Complications: None Findings: - Multinodular right thyroid lobe - Intact and functional right recurrent laryngeal nerve - Right superior parathyroid was removed with the specimen, was diced, and implanted into the left sternocleidomastoid muscle - O/W normal thyroid area exam Condition: stable Disposition: ICU Brief History: 68 yo wm with a h/o a right throid nodule with a suspicious FNA biopsy. The patient desires surgical therapy. Procedure: The patient was identified in the preoperative holding area and was taken to the operating where he was placed on the operating table in the supine position. Anesthesia was obtained with general endotracheal anesthesia. The endotracheal tube used had a nerve integrity monitor electrode placed on it and its proper positioning was ensured with the glide scope. A horizontal skin incision was then drawn out between the heads of sternocleidomastoid muscle 2 fingerbreadths above the sternal notch. This incision was injected with local anesthesia the patient was then prepped and draped in the usual sterile fashion. The incision was then made with 15 blade that was then carried down through the subcutaneous tissues with electrocautery. The strap muscles were then dissected off of the right thyroid lobe, and a circumferential dissection began around the right thyroid lobe with a Vega dissector. The Nirvana nerve monitoring hemostat was then used to stimulate the right vagus nerve and the carotid sheath on which there was positive stimulation. At this point the middle thyroid vein was dissected free from the right middle thyroid lobe and was clipped and divided with bipolar cautery. Attention was then turned to the inferior pole where the inferior parathyroid and thyrothymic horn were dissected off of the inferior pole of the thyroid. The dissection then proceeded superiorly until the right recurrent nerve was identified visually and electrically inferior to Gamboa's ligament. While protecting the nerve the gland was dissected off of Gamboa's ligament using clips and micro bipolar cautery. The superior pole vessels were then individually dissected off of the superior pole of the thyroid and each vessel was individually clipped and divided with the microbipolar forceps. At this point the right lobe was removed from the patient and hemostasis was achieved with bipolar cautery. At this point, with the right lobe now out of the patient the carotid sheath was restimulated with the Neurvana nerve monitoring hemostat and it again stimulated positive. The right thyroid lobe was inspected for any parathyroid tissue. The superior parathyroid gland came out onto the specimen - it was removed and diced into small 1 mm pieces and implanted in the left sternocleidomastoid muscle. This implantation site was marked with a blue 3-0 Prolene suture. At this point the wound was irrigated with copious amount of warm normal saline and the wound was reinspected hemostasis which was found to be adequate. Thrombin-soaked Gelfoam was placed in the right tracheoesophageal groove and a drain was placed in the wound. At this point the wound was closed with interrupted 4-0 Monocryl sutures in the subcu and running 5-0 Prolene on the skin. The procedure was then terminated and control of the patient was returned to anesthesia where he underwent an uneventful reversal of anesthesia and extubation and was taken to the recovery room in stable condition. There were no operative or anesthetic complications.
[2023-12-07] MEDS: midazolam 1 mg/mL INJ 2 mL 2 MG (11:15)
[2023-12-07] MEDS: HYDROcodone-acetaminophen 5-325 mg Tablet 1 TAB PO ×2 (12:40→20:17)
[2023-12-07] MEDS: cyclobenzaprine 10 mg Tablet PO (12:41)
[2023-12-07] MEDS: lactated ringers 1,000 ML 125 ML IV ×2 (12:42→20:16)
--- NOTE | 2023-12-07 13:34 | PC.NURSE ---
Received patient from OR staff at approximately 1100. BP: 118/86, HR: 91, SPO2: 93%, temp: 97.3. Patient is very agitated, attempting to pull off oxygen mask, attempting to pull out MOI drain and pulling off monitoring, trying to get out of bed despite being weak and uncoordinated. Patient yelling that he needs to go pee, but his bladder is empty as a catheter was just removed and bladder scan shows only 18mL retained. Versed administered. Patient became much less agitated, easier to redirect. After about 30 minutes he was following directions and alert enough that family could be brought back. Brought to bedside, educated on post anesthesia agitation. Patient remained calm when was present. At about 1230, patient was back to baseline mental stats, alert and oriented to person, place, time, and situation, calm, and cooperative.
--- NOTE | 2023-12-07 14:02 | ANE.PACU2 ---
Inpatient post-anesthesia follow up: Airway intact: Yes Vital signs: Temperature 97.3 F Pulse Rate 91 Respiratory Rate 13 Blood Pressure 121/97 Pulse Oximetry 96 Oxygen Delivery Me thod Nasal Cannula Oxygen Flow Rate 6 Fraction of Inspir ed Oxygen Hydration adequate: Yes Nausea and vomiting: No Pain level: 2 Mental status: Altered (Postop delirium)
[2023-12-07] MEDS: ipratropium-albuterol 3 mL Neb INHALATION ×2 (15:33→20:11)
--- NOTE | 2023-12-07 16:16 | P.PN_ITS ---
Subjective 2 Subjective: 68 yo wm night of surgery s/p right theodora thyroidectomy doing well by his report. The patient reports mild periincicional pain, and is able to take po well. He is o/w without c/o. Medications: Reviewed: Yes Vitals/I&O/Wt Last Vital Signs Temp 97.3 F L 12/07/23 11:25 Pulse 83 12/07/23 15:35 Resp 18 12/07/23 15:35 BP 121/97 12/07/23 13:15 Pulse Ox 94 12/07/23 15:35 O2 Del Method Nasal Cannula 12/07/23 15:35 O2 Flow Rate 2.5 12/07/23 15:35 12/07/23 12/07/23 12/07/23 06:59 14:59 22:59 Intake Total 100 / 100 Output Total 1200 / 1200 Balance -1100 / -1100 Weight last 48 hrs Weight 134.717 kg Physical Exam 2 Const: COMMON NORMALS: no acute distress, patient oriented x3 and alert G ENERAL APPEARANCE: cooperative, comfortable and well developed HENMT: COMMON NORMALS: normocephalic and atraumatic HEAD & SCALP: n ormocephalic and atraumatic FACE & SINUS: normal facial exam Eye: COMMON NORMALS: conjunctivae normal CONJUNCTIVA: Yes conjunctivae normal Neck/C-Spine: COMMON NORMALS: no lymphadenopathy GENERAL: Yes other (Thyroid area incision is intact and without swelling.) Chest: COMMONS NORMALS: normal inspection of the chest Resp: COMMON NORMALS: normal respiratory effort, No retractions, No use of accessory muscles and clear to auscultation bilaterally AUSCULTATION: clear to auscultation bilaterally Cardio: COMMON NORMALS: regular rate, regular rhythm and No murmurs present (Cardio) RATE: regular rate RHYTHM: regular rhythm GI: COMMON NORMALS: Normal to inspection, nondistended, normoactive bowel sounds present Extremity: COMMON NORMALS: normal to inspection Neuro: COMMON NORMALS: patient oriented x3 SENSORIUM/ORIENTATION: Yes alert Urinary Catheter Management: Ketn: Cath Placed During This Visit: yes, but has since been removed by the nurse Urinary Catheter Date of Insertion: 12/07/23 Urinary Catheter Time of Insertion: 08:25 Date Urinary Catheter Removed: 12/07/23 Time Urinary Catheter Discontinued: 10:50 Data 07/02/24 07:40 A&P Assessment and plan (1) Thyroid disease: Impression: Right thyroid nodule with suspicious FNA biopsy doing well s/p right hemithyroidectomy Plan: - Overnight ICU observation - Anticipate d/c in the am if the patient continues to do well Attestations 2 Medical Necessity Statement*: The patietn requires overnight observation of her airway. Coding Level of Care Code Acute Code for Chg Fwd Diagnoses Thyroid disease E07.9
[2023-12-07] MEDS: ceFAZolin 3,000 MG in sodium chloride 0.9% (100 ml) 100 ML 200 MG IV (16:34)
[2023-12-07] MEDS: docusate sodium 100 mg Capsule PO (17:18)
[2023-12-07] MEDS: pregabalin 75 mg Capsule 150 MG PO (17:18)
--- NOTE | 2023-12-07 18:05 | PC.NURSE ---
Shift Summary: after initially being agitated and borderline combative when he was first brought back, patient has been alert and oriented to person, place, time, and situation, calm and cooperative after anesthesia wore off. Spent most of the shift up to a chair. Airway sounds clear with no stridor. Incision site is unremarkable with no swelling, no excessive drainage present. 20mL of colby blood emptied from MOI drain to anterior neck, rate of output has been decreasing since arrival. FRENCH applied to incision site.
[2023-12-07] MEDS: diphenhydrAMINE 25 mg Capsule PO (20:16)
[2023-12-07 20:19] LABS: Glucose Point of Care 209 mg/dL (70-110)
[2023-12-08] MEDS: ceFAZolin 3,000 MG in sodium chloride 0.9% (100 ml) 100 ML 200 MG IV (00:43)
--- NOTE | 2023-12-08 05:10 | P.PN_ITS ---
Subjective 2 Subjective: 68 yo wm with a right thyroid nodule wit h suspicious FNA biopsy who is POD #1 s/p right hemithyroidectomy. The patient is taking po well, is urinating without difficulty, and has no other c/o. He reports mild periincisional pain. Medications: Reviewed: Yes Vitals/I&O/Wt Last Vital Signs Temp 97.3 F L 12/07/23 11:25 Pulse 95 12/07/23 20:16 Resp 18 12/07/23 20:16 BP 121/97 12/07/23 13:15 Pulse Ox 95 12/07/23 20:16 O2 Del Method Nasal Cannula 12/07/23 20:16 O2 Flow Rate 2 12/07/23 20:16 12/07/23 12/07/23 12/08/23 14:59 22:59 06:59 Intake Total 100 / 100 1045.833 / 1145.833 100 / 1245.833 Output Total 1200 / 1200 1520 / 2720 Balance -1100 / -1100 -474.167 / -1574.167 100 / -1474.167 Weight last 48 hrs Weight 135.397 kg Weight 134.717 kg Physical Exam 2 Const: COMMON NORMALS: no acute distress, patient oriented x3 and alert HENMT: COMMON NORMALS: normocephalic, atraumatic and Normal external nose present HEAD & SCALP: normocephalic and atraumatic FACE & SINUS: normal facial exam NOSE: Normal external nose present Eye: COMMON NORMALS: EOMs intact bilaterally, conjunctivae normal and no scleral icterus CONJUNCTIVA: Yes conjunctivae normal Neck/C-Spine: COMMON NORMALS: no lymphadenopathy and supple GENERAL: Yes other (Thyroid incision intact without swelling or erythema.) Lymph: LYMPHATIC: no lymphadenopathy noted Resp: COMMON NORMALS: normal respiratory effort, No retractions, No use of accessory muscles and clear to auscultation bilaterally AUSCULTATION: clear to auscultation bilaterally Cardio: COMMON NORMALS: regular rate, regular rhythm and No murmurs present (Cardio) RATE: regular rate RHYTHM: regular rhythm Extremity: COMMON NORMALS: normal to inspection Neuro: COMMON NORMALS: patient oriented x3 SENSORIUM/ORIENTATION: Yes alert Urinary Catheter Management: [place]: Cath Placed During This Visit: yes, but has since been removed by the nurse Urinary Catheter Date of Insertion: 12/07/23 Urinary Catheter Time of Insertion: 08:25 Date Urinary Catheter Removed: 12/07/23 Time Urinary Catheter Discontinued: 10:50 Data 12/07/23 07:40 A&P Assessment and plan (1) Thyroid nodule: Impression: Right thyroid nodule with suspicious FNA biopsy - the patient is doing well POD #1 s/p right hemithyroidectomy Plan: - D/C to home - Resume all preop medications - Empty and record drain ouput once daily and as needed - Apply Triple Antibiotic Ointment to the neck wounds TID - [place] () tabs: take 1-2 tabs po Q5 hours prn pain, #25, NR - F/U in Dr. Leonard's office on 12/13/23 @ 13:00 hours - Notify Dr. Leonard for any problems Attestations 2 Medical Necessity Statement*: The patient required overnight observation of his airway Coding Level of Care Code Acute Code for Chg Fwd Diagnoses Thyroid nodule E04.1
[2023-12-08 06:00] VITALS: PULSE 94; BMI 38.3
[2023-12-08 06:52] VITALS: BP 122/73; PULSE 83; RESP 18; TEMP 36.6; O2SAT 96
[2023-12-08 07:31] VITALS: TEMP 36.6
[2023-12-08 07:54] VITALS: BP 122/73; PULSE 83; RESP 18; TEMP 36.6; O2SAT 96
[2023-12-08] MEDS: calcium carb-vit d 600mg/400unit 1 Tablet 1 EACH PO (07:59)
[2023-12-08] MEDS: pantoprazole DR 40 mg Tablet PO (07:59)
[2023-12-08] MEDS: docusate sodium 100 mg Capsule PO (07:59)
[2023-12-08] MEDS: lisinopril 10 mg Tablet PO (07:59)
[2023-12-08] MEDS: hydroCHLOROthiazide 25 mg Tablet PO (07:59)
[2023-12-08] MEDS: pregabalin 75 mg Capsule 150 MG PO (07:59)
[2023-12-08] MEDS: atorvastatin 40 mg Tablet 20 MG PO (07:59)
[2023-12-08] MEDS: magnesium oxide 400 mg tablet PO (07:59)
[2023-12-08] MEDS: spironolactone 25 mg Tablet PO (08:00)
[2023-12-08 08:44] VITALS: PULSE 79; RESP 16; O2SAT 94
--- NOTE | 2023-12-08 08:52 | PC.NURSE ---
Discharge instructions provided to pt at this time. NO questions or concerns voiced. Instructed pt on how to empty MOI drain at home. Container provided for pt to use at home and instructed pt on how to measure and record drng amounts. Verbalizes understanding. Awaiting for ride home.
--- NOTE | 2023-12-08 08:56 | PC.NURSE ---
arrives. To private vehicle via wheelchair with all belongings.
== END 2023-12-08 08:57 | disposition home or self-care (01) ==
LOC: ICU 11:16
PROVIDERS: Anesthesiology; Admitting Provider Specialist; PCP Family Medicine; Visit Provider Specialist
PROC: (CPT 60220; principal; 2023-12-07 08:00)
DX: E04.2 Nontoxic multinodular goiter (principal); K21.9 Gastro-esophageal reflux disease without esophagitis; J44.9 Chronic obstructive pulmonary disease, unspecified; M19.90 Unspecified osteoarthritis, unspecified site; E78.5 Hyperlipidemia, unspecified
CPT/HCPCS: 60220; 36415; 36416; 51702; 80048; 82962; 88307; 94640; G0378; J0171; J0330; J0690; J1100; J1170; J2250; J2704; J3010; J7120

== ENCOUNTER 2024-04-20 10:56 | Emergency (ER) | payer OTHER, MEDICARE, SELFPAY ==
[2024-04-20 11:12] VITALS: BP 101/74; PULSE 92; RESP 20; TEMP 36.4; O2SAT 97; BMI 36.4
[2024-04-20 12:23] LABS: Basophils % 0.6 %; Eosinophils # 0.1 10^3/uL (0.0-0.8); Eosinophils % 1.5 %; Hematocrit 48.8 % (37-53); Lymphocytes # 1.5 10^3/uL (0.8-4.8); Lymphocytes % 22.3 %; Mean Corpuscular HGB Conc 34.4 g/dL (30-55); Mean Corpuscular Hemoglobin 31.2 pg (27-33); Mean Corpuscular Volume 90.5 fl (82-101); Mean Platelet Volume 8.5 fL (7.4-10.4); Monocytes # 0.8 10^3/uL (0.2-0.9); Monocytes % 12.3 %; Neutrophils # 4.19 10^3/uL (1.8-7.7); Neutrophils % 62.6 %; Nucleated Red Blood Cells % 0 %; Platelet Count 267 10^3/cmm (157-399); Red Blood Count 5.39 10^6/uL (3.85-5.65); Red Cell Distribution Width 12.7 % (12.1-15.1); White Blood Count 6.69 10^3/uL (3.29-11.43)
[2024-04-20 12:38] LABS: Alanine Aminotransferase 24 U/L (0-41); Albumin Level 4.4 g/dL (3.5-5.2); Alkaline Phosphatase 81 U/L (40-130); Anion Gap 17.1 (5-19); Aspartate Amino Transferase 20 U/L (0-40); Blood Urea Nitrogen 13 mg/dL (8-23); Calcium 8.5 mg/dL (8.5-10.5); Carbon Dioxide 23 mmol/L (22-29); Chloride 95 mmol/L (98-107); Creatinine Clr Calc Pharmacy 99.4473; Globulin 2.9 g/dL (1.3-4.6); Glomerular Filtration Rate 74.1 mL/min (90-130); Glucose 108 mg/dL (65-115); Lipase 10 U/L (13-60); Osmolality Calculated 273 mOsm/kg (285-295); Potassium 4.1 mmol/L (3.5-5.1); Sodium 131 mmol/L (136-145); Total Bilirubin 0.9 mg/dL (0.15-1.2); Total Protein 7.3 g/dL (6.6-8.7)
--- NOTE | 2024-04-20 15:33 | CTR_ITS ---
PROCEDURE INFORMATION: Exam: CT Abdomen And Pelvis With Contrast Exam date and time: 04/20/2024 4:47 PM Age: 69 years old Clinical indication: Abdominal pain; Generalized; Additional info: Abdominal pain, diarrhea TECHNIQUE: Imaging protocol: Computed tomography of the abdomen and pelvis with contrast. Radiation optimization: All CT scans at this facility use at least one of these dose optimization techniques: automated exposure control; mA and/or kV adjustment per patient size (includes targeted exams where dose is matched to clinical indication); or iterative reconstruction. Contrast material: OMNIPAQUE 350; Contrast volume: 100 ml; Contrast route: INTRAVENOUS (IV); COMPARISON: PT PET [facility] INITIAL [id number] 06/15/2023 10:45 AM RADIATION DOSE METRICS: Total DLP (mGy-cm): 1483.93 FINDINGS: Lungs: Subsegmental bibasilar atelectasis. The visualized lung bases are otherwise grossly clear. Diaphragm: No evidence of diaphragmatic defect. Liver: Hepatic steatosis. No evidence of focal hepatic lesion. Gallbladder and biliary ducts: Unremarkable. No intra-hepatic or extra-hepatic biliary dilatation. Pancreas: Unremarkable. Spleen: Unremarkable. Adrenal glands: Unremarkable. Kidneys and ureters: No renal parenchymal abnormality. No hydronephrosis or ureteral stone. Stomach and bowel: No evidence of bowel obstruction or perienteric inflammatory changes. Appendix: The appendix is not visualized, however there are no findings to suggest appendicitis. Intraperitoneal space: No evidence of free air or fluid collection. Vasculature: Moderate aortobiiliac atherosclerosis without aneurysmal dilatation or dissection. The celiac trunk, SMA and TATO are grossly patent. No evidence of IVC thrombus. The portal vein, SMV and splenic veins are grossly patent. Lymph nodes: No adenopathy. Urinary bladder: Grossly unremarkable. Reproductive: Grossly unremarkable. Bones/joints: No evidence of acute fracture or aggressive osseous lesion. Moderate multilevel spondylosis of the lumbar spine with facet arthrosis and osteophytosis. Moderate-severe L4-L5 central stenosis. Consider correlation with follow-up outpatient MRI to evaluate for neural impingement. Soft tissues: No evidence of fluid collection or hematoma in the superficial soft tissues. Small fat containing left-sided inguinal hernia. CT/CT abdomen pelvis w con* [id number] IMPRESSION: 1. No evidence of acute abnormality in the abdomen or pelvis.
--- NOTE | 2024-04-20 15:34 | W.ED.NAVMDI ---
HPI - Nausea/Vomiting/Diarrhea General: Chief complaint: Nausea/Vomiting/Diarrhea Stated complaint: vomitting, diarrhea Time Seen by Provider: 04/20/24 14:30 Source: patient and family Mode of arrival: ambulatory Limitations: no limitations History of Present Illness: Patient is a nice 69-year-old male who presents to ED today with a complaint of diarrhea. Patient states on Wednesday he had 2-3 episodes of nonbloody emesis and following this he began developing diarrhea. He has not had any further episodes of emesis. He states he is having anywhere from 5-10 diarrhea stools a day. They are nonbloody. He is having some abdominal cramping. He has not been running fevers. No known poor food exposures. He states he is up-to-date on his colonoscopies although the last colonoscopy they could not perform due to inadequate bowel prep. This is rescheduled for 6 months. MD elicited complaint: diarrhea Onset (ago): day(s) Description of diarrhea: loose Associated nausea: No Associated abdominal pain: Yes Location of pain: Diffuse Radiation: diffuse Pain consistency: intermittent Severity: mild Quality: cramping Exacerbating factors: eating Relieving factors: none Associated symtoms: Reports no associated symptoms; Denies chest pain, dysuria, fatigue, headache(s), malaise or nausea Treatment prior to arrival: immodium Related Data Home Medications Medication Instructions Recorded Confirmed finasteride 5 mg-tadalafil 5 mg 1 cap PO DAILY 03/02/23 12/06/23 capsule (Entadfi) lisinopril 10 mg tablet 10 mg PO DAILY 03/02/23 12/06/23 pantoprazole 40 mg tablet,delayed 40 mg PO DAILY 03/02/23 12/06/23 release rosuvastatin 10 mg tablet 5 mg PO DAILY 03/02/23 12/06/23 aspirin 81 mg tablet,delayed 81 mg PO DAILY 03/16/23 12/06/23 release (Adult Aspirin Regimen) magnesium oxide 400 mg PO DAILY 03/16/23 12/06/23 acetaminophen 500 mg capsule 500 mg PO Q6H PRN Pain 03/23/23 12/06/23 calcium 600 mg (as 1 tab PO DAILY 03/23/23 12/06/23 carbonate)-vitamin D3 10 mcg (400 unit) tablet glucosamine 750 [id number] 1 tab PO TID 03/23/23 12/06/23 no1 625 mg-C 30 mg-gi 1 mg tablet pregabalin 300 mg capsule (Lyrica) 150 mg PO BID 03/23/23 12/06/23 cyclobenzaprine 10 mg tablet 10 mg PO TID PRN muscle spasms 05/25/23 12/06/23 diphenhydramine HCl 25 mg capsule 25 mg PO .hs 05/25/23 12/06/23 (Allergy (diphenhydramine)) empagliflozin 10 mg tablet 10 mg PO DAILY 05/25/23 12/06/23 (Jardiance) omega-3 fatty acids-fish oil 300 1 cap PO BID 05/25/23 12/06/23 mg-1,000 mg capsule Curamin 3 tab PO DAILY 06/29/23 12/06/23 spironolactone 25 1 tab PO DAILY 06/29/23 12/06/23 mg-hydrochlorothiazide 25 mg tablet metronidazole 0.75 % topical gel 1 applic topical BID 10/15/23 12/06/23 (Rosadan) Previous Rx's Medication Instructions Recorded tiotropium 2.5 mcg-olodaterol 2.5 2 puff inhalation DAILY #4 grams 10/27/23 mcg/actuation mist for inhalation (Stiolto Respimat) hydrocodone 5 mg-acetaminophen 325 1 tab PO Q6H PRN pain #25 tabs 12/08/23 mg tablet Allergies Allergy/AdvReac Type Severity Reaction Status Date / Time metformin Allergy ADR-Cramping Verified 04/20/24 11:15 of the Muscles tramadol Allergy ADR-Vomitin Verified 04/20/24 11:15 g Review of Systems Const: Denies: fever(s), chills, body aches, fatigue or malaise Card: Denies: chest pain Resp: Denies: dyspnea GI: Reports: abdominal pain, diarrhea and GI cramping; Denies: nausea, vomiting, hematemesis, pain on defecation, rectal pain, hematochezia, melena or white/light colored stool : Denies: flank pain, dysuria or hematuria Musc: Denies: neck pain, back pain, extremity pain, extremity swelling, joint pain or joint swelling Skin/Breast: Denies: rash Neuro: Denies: headache(s), numbness in extremities, weakness in extremities or sensory changes [facility] ED PFSH: Medical History Diabetes Neuropathy COPD (chronic obstructive pulmonary disease) Surgical History Hx of tonsillectomy Family History Other CAD (coronary artery disease) Diabetes Stroke Social History Smoking and tobacco/nicotine status: former use of tobacco/nicotine Quit status (tobacco/nicotine): has quit using Year quit tobacco: 2005 Former quit date comment: 2ppd X 37 years Physical Exam Const: COMMON NORMALS: no acute distress, patient oriented x3, no limitations, alert and well nourished GENERAL APPEARANCE: cooperative NUTRITIONAL APPEARANCE: overweight ORIENTATION/CONSCIOUSNESS: Yes awake, Yes oriented to person, Yes oriented to place and Yes oriented to time Eye: COMMON NORMALS: no scleral icterus Resp: COMMON NORMALS: normal respiratory effort and clear to auscultation bilaterally AUSCULTATION: clear to auscultation bilaterally Cardio: COMMON NORMALS: regular rate and regular rhythm RATE: regular rate RHYTHM: regular rhythm GI: COMMON NORMALS: Normal to inspection, nondistended, normoactive bowel sounds present, Soft to palpation, No hepatosplenomegaly present and no masses INSPECTION: Yes normal to inspection PALPATION: Yes Soft to palpation, Yes Tenderness to palpation present (GI) (mild-diffusely), No Guarding due to palpation present (GI), No Rigid due to palpation and Yes No hepatosplenomegaly present : COMMON NORMALS: Yes no CVA tenderness BLADDER/KIDNEY EXAM: Yes no CVA tenderness Back/Pelvis: COMMON NORMALS: no CVA tenderness Neuro: COMMON NORMALS: patient oriented x3 SENSORIUM/ORIENTATION: Yes alert, Yes oriented to person, Yes oriented to place and Yes oriented to time Course Vital Signs: Vital signs: Vital Signs Temperature 97.5 F L 04/20/24 11:12 Pulse Rate 92 04/20/24 11:12 Respiratory Rate 20 H 04/20/24 11:12 Blood Pressure 101/74 04/20/24 11:12 Pulse Oximetry 97 04/20/24 11:12 Oxygen Delivery Me thod Room Air 04/20/24 11:12 MDM - Nausea/Vomiting/Diarrhea Medical Decision Making Patient clinically appears in no acute distress. His blood work overall is unremarkable. CT scan showing no acute abnormalities. He did have a very lengthy waiting room stay prior to being roomed. During his almost 7-hour ED stay he has not produced any diarrhea stools to get a stool sample. Recommend he follow-up with primary care if diarrhea persists so they can run these labs. Return to ED precautions given. Medical Records I reviewed the patient's medical records. Lab Data I reviewed the patient's lab results. 04/20/24 12:14 04/20/24 12:14 Radiology Impressions Abdomen/Pelvis CT 04/20/24 15:33 IMPRESSION: 1. No evidence of acute abnormality in the abdomen or pelvis. Laboratory Results WBC 6.69 10^3/uL (3.29-11.43) 04/20/24 12:14 RBC 5.39 10^6/uL (3.85-5.65) 04/20/24 12:14 Hgb 16.80 g/dL (11.27-16.99) 04/20/24 12:14 Hct 48.8 % (37-53) 04/20/24 12:14 MCV 90.5 fl (82-101) 04/20/24 12:14 MCH 31.2 pg (27-33) 04/20/24 12:14 MCHC 34.4 g/dL (30-55) 04/20/24 12:14 RDW 12.7 % (12.1-15.1) 04/20/24 12:14 Plt Count 267 10^3/cmm (157-399) 04/20/24 12:14 MPV 8.5 fL (7.4-10.4) 04/20/24 12:14 Neut % (Auto) 62.6 % 04/20/24 12:14 Lymph % (Auto) 22.3 % 04/20/24 12:14 Grainger % (Auto) 12.3 % 04/20/24 12:14 Eos % (Auto) 1.5 % 04/20/24 12:14 Baso % (Auto) 0.6 % 04/20/24 12:14 Neut # (Auto) 4.19 10^3/uL (1.8-7.7) 04/20/24 12:14 Lymph # (Auto) 1.5 10^3/uL (0.8-4.8) 04/20/24 12:14 Grainger # (Auto) 0.8 10^3/uL (0.2-0.9) 04/20/24 12:14 Eos # (Auto) 0.1 10^3/uL (0.0-0.8) 04/20/24 12:14 Baso # (Auto) 0.0 10^3/uL (0.0-0.1) 04/20/24 12:14 Nucleated RBC % (auto) 0 % 04/20/24 12:14 Nucleated RBCs # 0.0 /100WBC 04/20/24 12:14 Sodium 131 mmol/L (136-145) L 04/20/24 12:14 Potassium 4.1 mmol/L (3.5-5.1) 04/20/24 12:14 Chloride 95 mmol/L (98-107) L 04/20/24 12:14 Carbon Dioxide 23 mmol/L (22-29) 04/20/24 12:14 Anion Gap 17.1 (5-19) 04/20/24 12:14 BUN 13 mg/dL (8-23) 04/20/24 12:14 Creatinine 1.0 mg/dL (0.7-1.2) 04/20/24 12:14 GFR Calculation 74.1 mL/min (90-130) L 04/20/24 12:14 Glucose 108 mg/dL (65-115) 04/20/24 12:14 Calculated Osmolality 273 mOsm/kg (285-295) L 04/20/24 12:14 Calcium 8.5 mg/dL (8.5-10.5) 04/20/24 12:14 Total Bilirubin 0.9 mg/dL (0.15-1.2) 04/20/24 12:14 AST 20 U/L (0-40) 04/20/24 12:14 ALT 24 U/L (0-41) 04/20/24 12:14 Alkaline Phosphatase 81 U/L (40-130) 04/20/24 12:14 Total Protein 7.3 g/dL (6.6-8.7) 04/20/24 12:14 Albumin 4.4 g/dL (3.5-5.2) 04/20/24 12:14 Globulin 2.9 g/dL (1.3-4.6) 04/20/24 12:14 Lipase 10 U/L (13-60) L 04/20/24 12:14 All radiology interpretation(s) finalized by discharge Discharge Plan Discharge Patient Disposition: Home Clinical Impression: Diarrhea Qualifiers: Diarrhea type: unspecified type Qualified Code(s): R19.7 - Diarrhea, unspecified Condition: Stable Prescriptions: No Action lisinopril 10 mg tablet 10 mg PO DAILY Entadfi 5-5 mg capsule 1 cap PO DAILY Rx Instructions: administer on an empty stomach rosuvastatin 10 mg tablet 5 mg PO DAILY pantoprazole 40 mg tablet,delayed release (DR/EC) 40 mg PO DAILY cyclobenzaprine 10 mg tablet 10 mg PO TID PRN (Reason: muscle spasms) aspirin [Adult Aspirin Regimen] 81 mg tablet,delayed release (DR/EC) 81 mg PO DAILY magnesium oxide 400 mg magnesium tablet 400 mg PO DAILY diphenhydramine HCl [Allergy (diphenhydramine)] 25 mg capsule 25 mg PO .hs Jardiance 10 mg tablet 10 mg PO DAILY Stiolto Respimat 2.5-2.5 mcg/actuation mist 2 puff inhalation DAILY Qty: 4 3RF spironolacton-hydrochlorothiaz 25-25 mg tablet 1 tab PO DAILY Curamin 3 tab PO DAILY Rx Instructions: extra strength pain relief pregabalin [Lyrica] 300 mg capsule 150 mg PO BID calcium carbonate-vitamin D3 600 mg-10 mcg (400 unit) tablet 1 tab PO DAILY [id number] mg tablet 1 tab PO TID acetaminophen 500 mg capsule 500 mg PO Q6H PRN (Reason: Pain) omega-3 fatty acids-fish oil 300-1,000 mg capsule 1 cap PO BID metronidazole [Rosadan] 0.75 % gel 1 applic topical BID Rx Instructions: Apply thin amount to entire face twice daily hydrocodone-acetaminophen 5-325 mg tablet 1 tab PO Q6H PRN (Reason: pain) Qty: 25 0RF Discharge Orders: Discharge ED (Routine); Ordered 04/20/24 Ordered By: Wendi Newton Referrals: Alva Webb MD [Primary Care Provider] - Patient Instructions: Diarrhea - Adult, Acute Diarrhea (ED) Activity Restrictions/Additional Instructions: As we discussed, please follow-up with your primary care provider for further evaluation of your diarrhea. We attempted stool samples here today but you are unable to give a sample. Her blood work was unremarkable. CT scan showing no acute abnormalities. You need to return to the emergency department for severe abdominal pain, bloody diarrhea, fevers, generally feeling worse or unwell, or any other concerns you may have. I hope you begin to feel better soon. Coding Level of Care Code ED Dumb Waiter Operator for Fay Freeman
[2024-04-20] MEDS: ondansetron 2 mg/ML SDV 2 mL 4 MG IVP (15:51)
[2024-04-20] MEDS: sodium chloride 0.9% 1,000 ML 999 ML IV (15:51)
[2024-04-20] MEDS: iohexol 350 mg/mL 500 mL Btl (per mL) IV (16:50)
[2024-04-20 18:07] VITALS: BP 127/81; PULSE 79; RESP 18; O2SAT 96
[2024-04-20 18:10] VITALS: BP 127/81; PULSE 79; RESP 18; O2SAT 96
== END 2024-04-20 18:11 | disposition home or self-care (01) ==
PROVIDERS: Emergency Medicine; Emergency Provider Physician Assistant; PCP Family Medicine
DX: R19.7 Diarrhea, unspecified (principal)
CPT/HCPCS: 36415; 74177; 80053; 83690; 85025; 96361; 96374; 99285; J2405; J7030

== ENCOUNTER → 2024-06-08 09:17 | Outpatient (BNVA) | payer OTHER, SELFPAY | PROVIDERS: PCP Family Medicine; Visit Provider Nurse Practitioner Family | DX: D48.5 Neoplasm of uncertain behavior of skin (principal); L82.1 Other seborrheic keratosis; L57.8 Other skin changes due to chronic exposure to nonionizing radiation; L81.4 Other melanin hyperpigmentation; L85.3 Xerosis cutis; D23.71 Other benign neoplasm of skin of right lower limb, including hip; D29.4 Benign neoplasm of scrotum | CPT/HCPCS: 11102; 99213 ==

== ENCOUNTER 2024-07-06 09:51 | Outpatient (CLI) | payer OTHER, SELFPAY ==
--- NOTE | 2024-07-06 09:53 | MM_ITS ---
WS: [id number] LEFT 3D TOMOSYNTHESIS DIGITAL MAMMOGRAPHY WITH CAD CLINICAL INFORMATION: NEOPLASM OF UNCERTAIN BEHAVIOR OF SKIN HISTORY: LEFT breast pain and soreness TECHNIQUE: 3 views of the left breast were obtained. FINDINGS: Scattered fibroglandular densities of the left breast. Dense fibroglandular tissue deep to the LEFT n ipple likely gynecomastia. Ultrasound is pending. ULTRASOUND BREAST LEFT TECHNIQUE: Ultrasound left breast focused area of concern. CLINICAL INFORMATION: NEOPLASM OF UNCERTAIN BEHAVIOR OF SKIN FINDINGS: Ultrasound LEFT breast subareolar demonstrates a dense shadowing parenchymal tissue compatible with g ynecomastia. No visualized cystic or solid lesions to target for biopsy. Findings appear benign. Normal comparison ultrasound subareolar RIGHT breast. MM/MM diag LT tomosynthesis [id number] IMPRESSION: DENSITY: There are scattered areas of fibroglandular density. BI-RADS: 2 - Benign. FOLLOW UP: See Report
== END 2024-07-06 09:52 | disposition home or self-care (01) ==
LOC: RAD 09:51
PROVIDERS: PCP Family Medicine; Visit Provider Nurse Practitioner Family
DX: D48.5 Neoplasm of uncertain behavior of skin (principal); R92.322 Mammographic fibroglandular density, left breast; R92.8 Other abnormal and inconclusive findings on diagnostic imaging of breast
CPT/HCPCS: 76642; 77061; G0279

== ENCOUNTER → 2024-07-12 13:34 | Outpatient (BNVA) | payer OTHER, SELFPAY | PROVIDERS: PCP Family Medicine; Visit Provider Dermatology | DX: D17.22 Benign lipomatous neoplasm of skin and subcutaneous tissue of left arm (principal); L82.1 Other seborrheic keratosis; N62 Hypertrophy of breast; D18.01 Hemangioma of skin and subcutaneous tissue; C44.519 Basal cell carcinoma of skin of other part of trunk | CPT/HCPCS: 11603; 13101; 99213 ==

== ENCOUNTER → 2024-11-24 09:47 | Outpatient (BNVA) | payer OTHER, SELFPAY | PROVIDERS: PCP Family Medicine; Visit Provider Nurse Practitioner Family | DX: L71.8 Other rosacea (principal); N62 Hypertrophy of breast; L82.1 Other seborrheic keratosis; L57.8 Other skin changes due to chronic exposure to nonionizing radiation; L81.4 Other melanin hyperpigmentation; D22.5 Melanocytic nevi of trunk | CPT/HCPCS: 99214 ==

== ENCOUNTER 2025-03-02 06:19 | Outpatient (CLI) | payer OTHER, SELFPAY ==
--- NOTE | 2025-03-02 06:47 | CT_ITS ---
WS: [id number] LDCT LUNG CANCER SCREENING HISTORY: LUNG NODULE, SCREENING TECHNIQUE: Axial imaging performed from the apices to 1 cm below the costophrenic angles. Coronal and sagittal reformats are submitted with axial MIP series. All CT scans at [facility] use at least one of these dose optimization techniques: automated exposure control; mA and/or kV adjustment per patient size (includes targeted exams where dose is matched to clinical indication); or iterative reconstruction. DLP: 1 nine 1 mGy DIvol: 4.9 COMPARISON: 03/23/2023 Diagnostic quality: Satisfactory Lungs: Reidentified is a slightly lobulated 10 x 7 mm nodule in the anterior LEFT upper lobe which is unchanged in size since 03/23/2023. Calcified granuloma RIGHT upper lobe. Superior RIGHT pleural calcification. Mild dependent changes at the lung bases with a few benign calcifications. Pleural nodule measures 2 mm LEFT lung base. Heart: Normal size heart with no pericardial effusion.. Other findings: No pathologically enlarged lymph nodes. There are a few lymph nodes which are calcified. Mild atherosclerosis aorta. Normal size pulmonary artery. Small hiatal hernia. No adrenal mass. Moderate thoracic spondylosis. CT/CT lung screening [id number] IMPRESSION: LUNG-RADS: 2-Benign Appearance or Behavior FOLLOW UP: 12 Month: Continue annual screening with LDCT OTHER FINDINGS (S MODIFIER): None.
== END 2025-03-02 06:20 | disposition home or self-care (01) ==
LOC: RAD 06:20
PROVIDERS: PCP Family Medicine; Visit Provider Family Medicine
DX: Z12.2 Encounter for screening for malignant neoplasm of respiratory organs (principal); Z87.891 Personal history of nicotine dependence; R91.8 Other nonspecific abnormal finding of lung field; I70.0 Atherosclerosis of aorta; K44.9 Diaphragmatic hernia without obstruction or gangrene; M47.814 Spondylosis without myelopathy or radiculopathy, thoracic region; K63.5 Polyp of colon
CPT/HCPCS: 71271; 99214

== ENCOUNTER 2025-03-20 06:29 | Day surgery (SDC) | payer OTHER, SELFPAY ==
[2025-03-20 06:53] VITALS: BP 152/85; PULSE 76; RESP 20; TEMP 36.2; O2SAT 95; BMI 38.5
--- NOTE | 2025-03-20 08:00 | ANES.PREANE2 ---
Pre-Anesthetic Assessment Height/Weight: Height 1.88 m Weight 136.078 kg Temp Pulse Resp BP Pulse Ox O2 Del Method 97.1 F L 76 20 H 152/85 95 Room Air 03/20/25 06:53 03/20/25 06:53 03/20/25 06:53 03/20/25 06:53 03/20/25 06:53 03/20/25 06:53 Preop Diagnosis: Hx polyps Operation Date: 03/20/25 08:00 Proposed Procedures p Colonoscopy 42424 G0105 K63.5(Not Applicable) - Avtar Morataya MD Was Beta Arnold taken within 24 hours: N/A Was Clonidine taken within 24 hours: N/A Last intake: Intake Last Liquid Date 03/19/25 Last Liquid Time 22:00 Last Solid Date 03/18/25 Last Solid Time 17:00 Social No alcohol and No tobacco Exam alert, oriented x 3, clear to auscultation bilaterally and regular rate & rhythm Airway Submandibular: within normal limits Cervical ROM: within normal limits Mallampati: Class II Dentition: full History/ROS No significant history except as noted and No significant complaints Pulmonary Chronic Obstructive Pulmonary Disease CV/HEM None reported None reported Hepatic None reported GI None reported Metabolic Diabetes Mellitus, Morbid Obesity and Thyroid Disease Musc/skel Lower Back Pain and Osteoarthritis/DJD Neuropsych Anxiety Anesthetic Plan ASA status: 3 Anesthesia: Anesthesia Evaluation and MAC Risk of > 500 ml blood loss (7ml/kg in children): No Medications/Allergies Home Medications ?Medication ?Instructions ?Recorded ?Confirmed ?Last Taken ?Type finasteride 5 mg-tadalafil 5 mg 1 cap PO DAILY 03/02/23 03/20/25 03/18/25 History capsule (Entadfi) lisinopril 10 mg tablet 10 mg PO DAILY 03/02/23 03/20/25 03/18/25 History pantoprazole 40 mg tablet,delayed 40 mg PO DAILY 03/02/23 03/20/25 03/18/25 History release aspirin 81 mg tablet,delayed 81 mg PO DAILY 03/16/23 03/20/25 03/18/25 History release (Adult Aspirin Regimen) magnesium oxide 400 mg PO DAILY 03/16/23 03/20/25 03/18/25 History acetaminophen 500 mg capsule 500 mg PO Q6H PRN Pain 03/23/23 03/20/25 03/18/25 History calcium 600 mg (as 1 tab PO DAILY 03/23/23 03/20/25 03/18/25 History carbonate)-vitamin D3 10 mcg (400 unit) tablet pregabalin 300 mg capsule (Lyrica) 150 mg PO BID 03/23/23 03/20/25 03/18/25 History cyclobenzaprine 10 mg tablet 10 mg PO TID PRN muscle spasms 05/25/23 03/20/25 03/18/25 History diphenhydramine HCl 25 mg capsule 25 mg PO .hs 05/25/23 03/20/25 03/18/25 History (Allergy (diphenhydramine)) empagliflozin 10 mg tablet 10 mg PO DAILY 05/25/23 03/20/25 03/18/25 History (Jardiance) spironolactone 25 1 tab PO DAILY 06/29/23 03/20/25 03/18/25 History mg-hydrochlorothiazide 25 mg tablet metronidazole 0.75 % topical gel 1 applic topical BID 10/15/23 03/20/25 03/18/25 History (Rosadan) tiotropium 2.5 mcg-olodaterol 2.5 2 puff inhalation DAILY #4 grams 10/27/23 03/20/25 03/18/25 Rx mcg/actuation mist for inhalation (Stiolto Respimat) bisacodyl 5 mg tablet,delayed 5 mg PO DAILY #4 tabs 03/02/25 03/20/25 03/18/25 Rx release (Dulcolax (bisacodyl)) peg 3350-electrolytes 236 240 ml PO Q10M #4,000 mL 03/02/25 03/20/25 03/19/25 Rx gram-22.74 gram-6.74 gram-5.86 gram solution (Golytely) Allergies Allergy/AdvReac Type Severity Reaction Status Date / Time metformin Allergy ADR-Cramping Verified 03/14/25 08:35 of the Muscles tramadol Allergy ADR-Vomitin Verified 03/14/25 08:35 g Current Medications Generic Name Dose Route Start Last Admin Trade Name Freq PRN Reason Stop Dose Admin Sodium Chloride 1,000 mls @ 15 mls/hr 03/20/25 06:37 03/20/25 07:13 Sodium Chloride 0.9% IV 03/21/25 06:36 15 mls/hr .Q24H PRN Administration COLONOSCOPY FLUIDS PFSH Anesthesia Medical History Diabetes Neuropathy COPD (chronic obstructive pulmonary disease) Surgical History Hx of tonsillectomy Family History Other CAD (coronary artery disease) Diabetes Stroke Social History Smoking and tobacco/nicotine status: former use of tobacco/nicotine Quit status (tobacco/nicotine): has quit using Year quit tobacco: 2005 Former quit date comment: 2ppd X 37 years Data Anesthesia Cardiac Studies: Echocardiogram 04/06/23 Sestamibi Stress Test (Cardiology) 03/31/23
--- NOTE | 2025-03-20 08:05 | W.PM.OPSUD ---
Surgery/Procedure H&P Update DATE OF PROCEDURE: March 20, 2025 DATE H&P PERFORMED: 03/02/25 H&P UPDATE INFORMATION: I have reviewed H&P completed within last 30 days, I have examined patient prior to procedure, No changes to prior documentation and Risks and benefits of the procedure reviewed PREOP DIAGNOSIS: Hx polyps PLANNED PROCEDURE: Operation Date: 03/20/25 08:00 Proposed Procedures p Colonoscopy [id number] G0105 K63.5(Not Applicable) - Avtar Morataya MD
[2025-03-20 08:37] VITALS: BP 125/76; PULSE 78; RESP 20; TEMP 36.1; O2SAT 95
--- NOTE | 2025-03-20 09:10 | ANE.PACU2 ---
Inpatient post-anesthesia follow up: Airway intact: Yes Vital signs: Temperature 97 F Pulse Rate 78 Respiratory Rate 20 Blood Pressure 125/76 Pulse Oximetry 95 Oxygen Delivery Me thod Room Air Oxygen Flow Rate Fraction of Inspir ed Oxygen Hydration adequate: Yes Nausea and vomiting: No Pain level: 1 Mental status: Baseline
== END 2025-03-20 09:10 | disposition home or self-care (01) ==
PROVIDERS: PCP Family Medicine; Visit Provider Student in an Organized Health Care Education/Training Program
PROC: 0DJD8ZZ Inspection of Lower Intestinal Tract, Via Natural or Artificial Opening Endoscopic (ICD-10-PCS; CPT 45378; principal; 2025-03-20 08:00)
DX: Z12.11 Encounter for screening for malignant neoplasm of colon (principal); K57.30 Diverticulosis of large intestine without perforation or abscess without bleeding; D12.8 Benign neoplasm of rectum; Z86.0100 Personal history of colon polyps, unspecified; J44.9 Chronic obstructive pulmonary disease, unspecified; E11.9 Type 2 diabetes mellitus without complications; E66.01 Morbid (severe) obesity due to excess calories; Z68.38 Body mass index [BMI] 38.0-38.9, adult; F41.9 Anxiety disorder, unspecified; E07.9 Disorder of thyroid, unspecified; Z79.82 Long term (current) use of aspirin; K21.9 Gastro-esophageal reflux disease without esophagitis; Z87.891 Personal history of nicotine dependence
CPT/HCPCS: 36416; 45380; 82962; 88305; J2704; J7030

== ENCOUNTER → 2025-04-09 10:26 | Outpatient (BNVA) | payer OTHER, SELFPAY | PROVIDERS: PCP Family Medicine; Visit Provider Student in an Organized Health Care Education/Training Program | DX: Z09 Encounter for follow-up examination after completed treatment for conditions other than malignant neoplasm (principal) | CPT/HCPCS: 99213 ==